=== PATIENT | male | born 1980 | race African-American/Black ===

== ENCOUNTER 2017-08-22 15:34 | Inpatient (IN) | payer MEDICARE, MEDICAID ==
[~2017-08-22] VITALS: Ht 171.4 cm; Wt 71.9 kg
[~2017-08-22 15:34] MED LIST: FOLI1 PO; LEVE500T53 PO; MULT-1203 PO; NALT50TA6 PO; PALI234D IM; PHENY100 PO; PRAZ1 PO; PREG50 PO; THIA100 PO
[2017-08-22] MEDS ORDERED: CARB200T6 PO (15:51)
[2017-08-22] MEDS ORDERED: CARI350 PO (15:51)
[2017-08-22] MEDS ORDERED: GABA-531 PO (15:51)
[2017-08-22] MEDS ORDERED: PROZ10 PO (15:51)
[2017-08-22 16:19] LABS: BASOPHILS % (AUTO) 0.8 % (0.0-2.0); HEMATOCRIT 49.3 % (41-53); HEMOGLOBIN 17.1 g/dL (13.5-17.5); LYMPHOCYTES # (AUTO) 1.9 K/uL (1.0-4.8); LYMPHOCYTES % (AUTO) 35.9 % (22.0-44.0); MEAN CORPUSCULAR HGB CONC 34.7 G/dL (31.0-37.0); MEAN CORPUSCULAR VOLUME 92 fL (80-100); MONOCYTES # (AUTO) 0.4 K/uL (0.1-1.0); MONOCYTES % (AUTO) 6.6 % (2.0-9.0); NEUTROPHILS # (AUTO) 2.6 K/uL (1.8-7.7); NEUTROPHILS % (AUTO) 49.7 % (40.0-70.0); PLATELET COUNT (AUTO) 219 K/uL (150-450); RED BLOOD CELL COUNT(AUTO) 5.35 MIL/uL (4.50-5.90); RED CELL DISTRIBUTION WIDTH 12.8 % (11.5-14.5); WHITE BLOOD COUNT (AUTO) 5.3 K/uL (4.5-11.0)
[2017-08-22 16:37] LABS: ANION GAP 6 mmol/L (8-16); CALCIUM, TOTAL 8.7 mg/dL (8.8-10.5); CARBON DIOXIDE 27 mmol/L (22-29); CHLORIDE 104 mmol/L (98-107); CREATININE 1.01 mg/dL (0.60-1.30); GLOMERULAR FILTR. RATE CALC > 60 mL/min (>60); POTASSIUM 4.2 mmol/L (3.5-5.1); SODIUM SERUM 137 mmol/L (136-145); UREA NITROGEN, BLOOD 16 mg/dL (7-18)
[2017-08-22 16:42] LABS: ALANINE AMINOTRANSFERASE 23 U/L (12-78); ASPARTATE AMINOTRANSFERASE 22 U/L (15-37); BILIRUBIN,TOTAL 0.2 mg/dL (0.1-1.0)
[2017-08-22] MEDS ORDERED: ZOLPIDEM TARTRATE 10 MG TABLET PO PRN (17:00)
[2017-08-22 19:19] VITALS: BP 113/68
[2017-08-23 07:06] VITALS: BP 115/76
[2017-08-23] MEDS: CarBAMazepine 100 MG CHEWABLE TABLET PO SCH (08:28)
[2017-08-23] MEDS: PHENYTOIN SODIUM 100 MG ER CAPSULE PO SCH ×2 (08:29→16:20)
[2017-08-23] MEDS: LORazepam 2 MG TABLET PO PRN ×2 (08:32→16:21)
[2017-08-23 09:18] LABS: CHOL/HDL RATIO 3.5 (4.2-7.3)
[2017-08-23 09:24] VITALS: BP 113/62
[2017-08-23] MEDS ORDERED: ONDANSETRON HCL 4 MG TABLET PO PRN (09:30)
[2017-08-23] MEDS ORDERED: ACETAMINOPHEN 325 MG TABLET PO PRN (09:30)
[2017-08-23] MEDS ORDERED: ALBUTEROL SULFATE HFA 90 MCG/PUFF 8 GM INHALER IH PRN (09:30)
[2017-08-23] MEDS ORDERED: MAGNESIUM HYDROXIDE SUSPENSION 30 ML UDCUP PO PRN (09:30)
[2017-08-23] MEDS ORDERED: MAG HYDROX/AL HYDROX/SIMETH ES 30 ML SUSPENSION UDCUP PO PRN (09:30)
[2017-08-23] MEDS ORDERED: CloNIDine HCL 0.1 MG TABLET PO PRN (09:30)
[2017-08-23] MEDS ORDERED: PETROLATUM,WHITE 71 GM JELLY TP PRN (09:30)
[2017-08-23] MEDS ORDERED: BACITRACIN 28.4 GM OINTMENT TP PRN (09:30)
[2017-08-23] MEDS ORDERED: BENZOCAINE/MENTHOL LOZENGE MM PRN (09:30)
[2017-08-23] MEDS ORDERED: LOPERAMIDE HCL 2 MG CAPSULE PO PRN (09:30)
[2017-08-23] MEDS ORDERED: IBUPROFEN 600 MG TABLET PO PRN (09:30)
[2017-08-23 16:00] VITALS: BP 115/69
[2017-08-23] MEDS: HALOPERIDOL 5 MG TABLET PO PRN (16:21)
[2017-08-23] MEDS: GABAPENTIN 300 MG CAPSULE PO SCH (16:21)
[2017-08-24 03:52] VITALS: BP 115/69
[2017-08-24] MEDS: FLUoxetine HCL 20 MG CAPSULE PO SCH (08:53)
[2017-08-24] MEDS: PHENYTOIN SODIUM 100 MG ER CAPSULE PO SCH ×2 (08:53→16:10)
[2017-08-24] MEDS: CarBAMazepine 100 MG CHEWABLE TABLET PO SCH (08:53)
[2017-08-24] MEDS: GABAPENTIN 300 MG CAPSULE PO SCH ×3 (08:53→16:10)
[2017-08-24] MEDS: LORazepam 2 MG TABLET PO PRN ×2 (08:53→16:31)
[2017-08-24 09:39] VITALS: BP 111/64
[2017-08-24] MEDS: HALOPERIDOL 5 MG TABLET PO PRN (16:31)
[2017-08-24 18:45] VITALS: BP 119/67
[2017-08-25] VITALS (7 sets, daily range): BP systolic 107–124; BP diastolic 50–78
[2017-08-25] MEDS: LORazepam 2 MG TABLET PO PRN (05:56)
[2017-08-25] MEDS: GABAPENTIN 300 MG CAPSULE PO SCH ×3 (09:49→16:05)
[2017-08-25] MEDS: CarBAMazepine 100 MG CHEWABLE TABLET PO SCH (09:49)
[2017-08-25] MEDS: FLUoxetine HCL 20 MG CAPSULE PO SCH (09:49)
[2017-08-25] MEDS: PHENYTOIN SODIUM 100 MG ER CAPSULE PO SCH ×2 (09:50→16:05)
[2017-08-25 15:13] LABS: GLUCOSE,POINT OF CARE 104 MG/DL (70-110)
[2017-08-26 07:50] VITALS: BP 122/78
[2017-08-26] MEDS: PHENYTOIN SODIUM 100 MG ER CAPSULE PO SCH ×2 (08:31→16:16)
[2017-08-26] MEDS: GABAPENTIN 300 MG CAPSULE PO SCH ×3 (08:31→16:16)
[2017-08-26] MEDS: CarBAMazepine 100 MG CHEWABLE TABLET PO SCH (08:31)
[2017-08-26] MEDS: FLUoxetine HCL 20 MG CAPSULE PO SCH (08:32)
[2017-08-26] MEDS: LORazepam 2 MG TABLET PO PRN ×2 (08:32→13:21)
[2017-08-26 08:35] VITALS: BP 111/68
[2017-08-26 16:00] VITALS: BP 112/65
[2017-08-27 05:04] VITALS: BP 109/76
[2017-08-27] MEDS: LORazepam 2 MG TABLET PO PRN (07:50)
[2017-08-27] MEDS: FLUoxetine HCL 20 MG CAPSULE PO SCH (08:44)
[2017-08-27] MEDS: GABAPENTIN 300 MG CAPSULE PO SCH (08:44)
[2017-08-27] MEDS: CarBAMazepine 100 MG CHEWABLE TABLET PO SCH (08:44)
[2017-08-27] MEDS: PHENYTOIN SODIUM 100 MG ER CAPSULE PO SCH (08:44)
[2017-08-27 08:53] LABS: ALANINE AMINOTRANSFERASE 35 U/L (12-78); ALBUMIN 3.8 g/dL (3.4-5.0); ANION GAP 6 mmol/L (8-16); ASPARTATE AMINOTRANSFERASE 24 U/L (15-37); BILIRUBIN,TOTAL 0.1 mg/dL (0.1-1.0); CALCIUM, TOTAL 8.6 mg/dL (8.8-10.5); CARBON DIOXIDE 31 mmol/L (22-29); CHLORIDE 104 mmol/L (98-107); GLOMERULAR FILTR. RATE CALC > 60 mL/min (>60); POTASSIUM 4.2 mmol/L (3.5-5.1); SODIUM SERUM 141 mmol/L (136-145); TOTAL PROTEIN, SERUM 6.4 g/dL (6.4-8.2); UREA NITROGEN, BLOOD 19 mg/dL (7-18)
[2017-08-27 08:56] VITALS: BP 105/67
[2017-08-27] MEDS ORDERED: FLUO40CA7 PO (10:43)
[2017-08-27] MEDS ORDERED: PHEN100C23 PO (10:44)
[2017-08-27] MEDS ORDERED: CARB100C4 PO (10:44)
== END 2017-08-27 12:03 | disposition home or self-care (01) | DRG 885 ==
LOC: EMS 15:37 → B3A 17:26
PROVIDERS: ADMIT Psychiatry & Neurology Psychiatry; ATTEND Psychiatry & Neurology Psychiatry
DX: F25.0 Schizoaffective disorder, bipolar type (principal); R45.851 Suicidal ideations; F15.20 Other stimulant dependence, uncomplicated; F19.20 Other psychoactive substance dependence, uncomplicated; G40.909 Epilepsy, unspecified, not intractable, without status epilepticus; I10 Essential (primary) hypertension; G47.00 Insomnia, unspecified; K59.00 Constipation, unspecified; G89.29 Other chronic pain; F17.210 Nicotine dependence, cigarettes, uncomplicated; M54.5 Low back pain; Z88.8 Allergy status to other drugs, medicaments and biological substances; Z79.899 Other long term (current) drug therapy; Z71.51 Drug abuse counseling and surveillance of drug abuser; Z71.6 Tobacco abuse counseling; Z59.0 Homelessness; Z86.73 Personal history of transient ischemic attack (TIA), and cerebral infarction without residual deficits
CPT/HCPCS: 82962; 99285; G0480

== ENCOUNTER 2017-11-10 15:37 | Inpatient (IN) | payer MEDICARE, MEDICAID ==
[~2017-11-10] VITALS: Ht 172.7 cm; Wt 73.0 kg
[~2017-11-10 15:37] MED LIST changes: +CARB100C4 PO; +FLUO40CA7 PO; -FOLI1 PO; +GABA-531 PO; -LEVE500T53 PO; -MULT-1203 PO; -NALT50TA6 PO; -PALI234D IM; +PHEN100C23 PO; -PHENY100 PO; -PRAZ1 PO; -PREG50 PO; -THIA100 PO
[2017-11-10 16:32] LABS: BASOPHILS # (AUTO) 0.03 K/uL (0.00-0.20); BASOPHILS % (AUTO) 0.4 % (0.0-2.0); EOSINOPHILS # (AUTO) 0.53 K/uL (0.00-0.70); EOSINOPHILS % (AUTO) 8.32 % (1.0-6.0); HEMATOCRIT 46.3 % (41-53); HEMOGLOBIN 15.6 g/dL (13.5-17.5); LYMPHOCYTES # (AUTO) 1.6 K/uL (1.0-4.8); LYMPHOCYTES % (AUTO) 24.7 % (22.0-44.0); MEAN CORPUSCULAR HEMOGLOBIN 31.9 pg (26.0-34.0); MEAN CORPUSCULAR HGB CONC 33.7 G/dL (31.0-37.0); MEAN CORPUSCULAR VOLUME 95 fL (80-100); MONOCYTES # (AUTO) 0.4 K/uL (0.1-1.0); NEUTROPHILS # (AUTO) 3.8 K/uL (1.8-7.7); NEUTROPHILS % (AUTO) 59.6 % (40.0-70.0); PLATELET COUNT (AUTO) 200 K/uL (150-450); RED BLOOD CELL COUNT(AUTO) 4.89 MIL/uL (4.50-5.90); RED CELL DISTRIBUTION WIDTH 13.3 % (11.5-14.5)
[2017-11-10] MEDS ORDERED: CARB100O PO (16:43)
[2017-11-10] MEDS ORDERED: QUET200T PO (16:44)
[2017-11-10 16:45] LABS: ANION GAP 9 mmol/L (8-16); CALCIUM, TOTAL 8.8 mg/dL (8.8-10.5); CARBON DIOXIDE 27 mmol/L (22-29); CHLORIDE 104 mmol/L (98-107); CREATININE 0.79 mg/dL (0.60-1.30); GLOMERULAR FILTR. RATE CALC > 60 mL/min (>60); GLUCOSE,RANDOM 137 mg/dL (70-110); POTASSIUM 3.8 mmol/L (3.5-5.1); SODIUM SERUM 140 mmol/L (136-145); UREA NITROGEN, BLOOD 16 mg/dL (7-18)
[2017-11-10 16:50] LABS: ALANINE AMINOTRANSFERASE 27 U/L (12-78); ALBUMIN 3.6 g/dL (3.4-5.0); ALKALINE PHOSPHATASE 72 U/L (46-116); ASPARTATE AMINOTRANSFERASE 24 U/L (15-37); BILIRUBIN,TOTAL 0.2 mg/dL (0.1-1.0)
[2017-11-10 18:48] LABS: AMPHET/METH SCREEN,URINE POSITIVE (NEGATIVE); BARBITURATE SCREEN, URINE NEGATIVE (NEGATIVE); BENZODIAZEPINES SCREEN,URINE NEGATIVE (NEGATIVE); CANNABINOID SCREEN,URINE NEGATIVE (NEGATIVE); COCAINE SCREEN,URINE NEGATIVE (NEGATIVE); METHADONE SCREEN, URINE NEGATIVE (NEGATIVE); OPIATE SCREEN,URINE NEGATIVE (NEGATIVE); PHENCYCLIDINE SCREEN,URINE NEGATIVE (NEGATIVE)
[2017-11-10] MEDS ORDERED: ZOLPIDEM TARTRATE 10 MG TABLET PO PRN (20:15)
[2017-11-10] MEDS ORDERED: LORazepam 2 MG TABLET PO ONE (20:30)
[2017-11-10] MEDS ORDERED: IBUPROFEN 600 MG TABLET PO PRN (21:15)
[2017-11-10] MEDS ORDERED: ACETAMINOPHEN 325 MG TABLET PO PRN (21:15)
[2017-11-10 21:23] VITALS: BP 114/71
[2017-11-10 23:17] LABS: APPEARANCE,URINE CLEAR (CLEAR); BILIRUBIN,URINE NEGATIVE (NEGATIVE); GLUCOSE, URINE (UA) NEGATIVE (NEGATIVE); KETONES,URINE NEGATIVE (NEGATIVE); LEUKOCYTE ESTERASE ,URINE NEGATIVE (NEGATIVE); NITRATE,URINE NEGATIVE (NEGATIVE); OCCULT BLOOD,URINE MODERATE (NEGATIVE); PROTEIN,URINE NEGATIVE (NEGATIVE); UROBILINOGEN,URINE 0.2 mg/dL (<=1.0)
[2017-11-10 23:38] LABS: BACTERIA,URINE Rare /HPF (None Seen); CALCIUM OXALATE CRYSTALS,UR Moderate /LPF (None Seen); SQUAMOUS EPITHELIAL CELL,UR Few /LPF (None Seen); WBC,URINE 0-2 /HPF (0-5)
[2017-11-11] MEDS: CarBAMazepine 200 MG TABLET PO SCH ×3 (08:01→17:00)
[2017-11-11] MEDS: GABAPENTIN 300 MG CAPSULE PO SCH ×3 (08:01→17:00)
[2017-11-11] MEDS: NICOTINE 21 MG/24 HOUR PATCH TD SCH (08:01)
[2017-11-11 08:47] VITALS: BP 112/76
[2017-11-11 11:42] LABS: CHOL/HDL RATIO 3.6 (4.2-7.3); CHOLESTEROL 172 mg/dL (131-200); HDL CHOLESTEROL 48 mg/dL (40-60); LDL CHOL (CALC.) 88 mg/dL (0-130); TRIGLYCERIDES 179 mg/dL (15-150)
[2017-11-11] MEDS: HALOPERIDOL 5 MG TABLET PO PRN (12:26)
[2017-11-11] MEDS: LORazepam 2 MG TABLET PO PRN (12:26)
[2017-11-11 16:00] VITALS: BP 122/70
[2017-11-11] MEDS ORDERED: QUEtiapine FUMARATE 200 MG TABLET PO SCH (21:00)
[2017-11-12 06:15] VITALS: BP 120/61
[2017-11-12] MEDS: FLUoxetine HCL 20 MG CAPSULE PO SCH (08:36)
[2017-11-12] MEDS: GABAPENTIN 300 MG CAPSULE PO SCH ×3 (08:36→16:15)
[2017-11-12] MEDS: CarBAMazepine 200 MG TABLET PO SCH ×3 (08:36→16:15)
[2017-11-12] MEDS: NICOTINE 21 MG/24 HOUR PATCH TD SCH (08:38)
[2017-11-12] MEDS: LORazepam 2 MG TABLET PO PRN (08:39)
[2017-11-12 08:52] VITALS: BP 119/74
[2017-11-12] MEDS: HALOPERIDOL 5 MG TABLET PO PRN (16:20)
[2017-11-12 17:00] VITALS: BP 106/70
[2017-11-13 05:24] VITALS: BP 126/70
[2017-11-13] MEDS: FLUoxetine HCL 20 MG CAPSULE PO SCH (08:57)
[2017-11-13] MEDS: GABAPENTIN 300 MG CAPSULE PO SCH ×3 (08:57→16:27)
[2017-11-13] MEDS: CarBAMazepine 200 MG TABLET PO SCH ×3 (08:57→16:27)
[2017-11-13] MEDS: NICOTINE 21 MG/24 HOUR PATCH TD SCH (09:01)
[2017-11-13 10:24] VITALS: BP 121/79
[2017-11-13 17:34] VITALS: BP 109/63
[2017-11-14] MEDS: CarBAMazepine 200 MG TABLET PO SCH ×3 (08:29→16:03)
[2017-11-14] MEDS: GABAPENTIN 300 MG CAPSULE PO SCH ×3 (08:29→16:03)
[2017-11-14] MEDS: FLUoxetine HCL 20 MG CAPSULE PO SCH (08:29)
[2017-11-14] MEDS: NICOTINE 21 MG/24 HOUR PATCH TD SCH (08:33)
[2017-11-14 09:24] VITALS: BP 140/86
[2017-11-14 18:50] VITALS: BP 132/79
[2017-11-15] MEDS: GABAPENTIN 300 MG CAPSULE PO SCH ×2 (08:23→12:56)
[2017-11-15] MEDS: CarBAMazepine 200 MG TABLET PO SCH ×2 (08:24→12:56)
[2017-11-15] MEDS: FLUoxetine HCL 20 MG CAPSULE PO SCH (08:24)
[2017-11-15] MEDS: NICOTINE 21 MG/24 HOUR PATCH TD SCH (09:00)
[2017-11-15 09:09] VITALS: BP 106/71
== END 2017-11-15 14:45 | disposition home or self-care (01) | DRG 885 ==
LOC: EMS 15:38 → 3EX 20:30
PROVIDERS: ADMIT Psychiatry & Neurology Psychiatry; ATTEND Psychiatry & Neurology Psychiatry
DX: F25.1 Schizoaffective disorder, depressive type (principal); R45.851 Suicidal ideations; G40.909 Epilepsy, unspecified, not intractable, without status epilepticus; F32.9 Major depressive disorder, single episode, unspecified; G89.29 Other chronic pain; M54.9 Dorsalgia, unspecified; F15.90 Other stimulant use, unspecified, uncomplicated; F41.9 Anxiety disorder, unspecified; N20.0 Calculus of kidney; Z88.8 Allergy status to other drugs, medicaments and biological substances; Z95.0 Presence of cardiac pacemaker; Z59.0 Homelessness; Z82.49 Family history of ischemic heart disease and other diseases of the circulatory system; Z82.5 Family history of asthma and other chronic lower respiratory diseases; Z86.73 Personal history of transient ischemic attack (TIA), and cerebral infarction without residual deficits; Z87.442 Personal history of urinary calculi; F10.21 Alcohol dependence, in remission; Z87.891 Personal history of nicotine dependence; F19.10 Other psychoactive substance abuse, uncomplicated
CPT/HCPCS: 99285; G0480

== ENCOUNTER 2018-05-03 08:16 | Inpatient (IN) | payer MEDICARE, MEDICAID ==
[~2018-05-03] VITALS: Ht 172.7 cm; Wt 69.1 kg
[~2018-05-03 08:16] MED LIST changes: -PHEN100C23 PO
[2018-05-03] MEDS ORDERED: QUET100T PO (09:31)
[2018-05-03] MEDS ORDERED: CARI350 PO (09:31)
[2018-05-03 09:54] LABS: BASOPHILS % (AUTO) 0.7 % (0.0-2.0); EOSINOPHILS % (AUTO) 4.7 % (1.0-6.0); HEMATOCRIT 49.1 % (41-53); HEMOGLOBIN 17.3 g/dL (13.5-17.5); LYMPHOCYTES # (AUTO) 2.2 K/uL (1.0-4.8); LYMPHOCYTES % (AUTO) 38.7 % (22.0-44.0); MEAN CORPUSCULAR HEMOGLOBIN 31.8 pg (26.0-34.0); MEAN CORPUSCULAR HGB CONC 35.3 G/dL (31.0-37.0); MEAN CORPUSCULAR VOLUME 90 fL (80-100); MONOCYTES # (AUTO) 0.3 K/uL (0.1-1.0); MONOCYTES % (AUTO) 6.2 % (2.0-9.0); NEUTROPHILS # (AUTO) 2.8 K/uL (1.8-7.7); NEUTROPHILS % (AUTO) 49.7 % (40.0-70.0); PLATELET COUNT (AUTO) 227 K/uL (150-450); RED BLOOD CELL COUNT(AUTO) 5.44 MIL/uL (4.50-5.90); RED CELL DISTRIBUTION WIDTH 13.6 % (11.5-14.5)
[2018-05-03 09:59] LABS: ANION GAP 6 mmol/L (8-16); CALCIUM, TOTAL 8.5 mg/dL (8.8-10.5); CARBON DIOXIDE 28 mmol/L (22-29); CHLORIDE 105 mmol/L (98-107); CREATININE 1.01 mg/dL (0.60-1.30); GLOMERULAR FILTR. RATE CALC > 60 mL/min (>60); GLUCOSE,RANDOM 93 mg/dL (70-110); POTASSIUM 3.9 mmol/L (3.5-5.1); SODIUM SERUM 139 mmol/L (136-145); UREA NITROGEN, BLOOD 8 mg/dL (7-18)
[2018-05-03 10:04] LABS: ALANINE AMINOTRANSFERASE 29 U/L (12-78); ALBUMIN 4.1 g/dL (3.4-5.0); ALKALINE PHOSPHATASE 61 U/L (46-116); ASPARTATE AMINOTRANSFERASE 23 U/L (15-37); BILIRUBIN,TOTAL 0.5 mg/dL (0.1-1.0); TOTAL PROTEIN, SERUM 7.4 g/dL (6.4-8.2)
[2018-05-03 10:24] LABS: AMPHET/METH SCREEN,URINE POSITIVE (NEGATIVE); BARBITURATE SCREEN, URINE NEGATIVE (NEGATIVE); BENZODIAZEPINES SCREEN,URINE NEGATIVE (NEGATIVE); CANNABINOID SCREEN,URINE NEGATIVE (NEGATIVE); COCAINE SCREEN,URINE NEGATIVE (NEGATIVE); METHADONE SCREEN, URINE NEGATIVE (NEGATIVE); OPIATE SCREEN,URINE NEGATIVE (NEGATIVE); PHENCYCLIDINE SCREEN,URINE NEGATIVE (NEGATIVE)
[2018-05-03] MEDS ORDERED: ACETAMINOPHEN 325 MG TABLET PO PRN (13:45)
[2018-05-03] MEDS ORDERED: QUEtiapine FUMARATE 100 MG TABLET PO PRN (13:45)
[2018-05-03] MEDS ORDERED: LORazepam 2 MG TABLET PO PRN (13:45)
[2018-05-03] MEDS ORDERED: ZOLPIDEM TARTRATE 10 MG TABLET PO PRN (13:45)
[2018-05-03 16:15] VITALS: BP 104/71
[2018-05-03] MEDS ORDERED: CARB200T6 PO (17:08)
[2018-05-03 17:30] VITALS: BP 122/66
[2018-05-03] MEDS ORDERED: ALBUTEROL SULFATE HFA 90 MCG/PUFF 8 GM INHALER IH PRN (18:30)
[2018-05-03] MEDS ORDERED: CloNIDine HCL 0.1 MG TABLET PO PRN (18:30)
[2018-05-03] MEDS ORDERED: LOPERAMIDE HCL 2 MG CAPSULE PO PRN (18:30)
[2018-05-03] MEDS ORDERED: MAGNESIUM HYDROXIDE SUSPENSION 30 ML UDCUP PO PRN (18:30)
[2018-05-03] MEDS ORDERED: PETROLATUM,WHITE 71 GM JELLY TP PRN (18:30)
[2018-05-03] MEDS ORDERED: ONDANSETRON HCL 4 MG TABLET PO PRN (18:30)
[2018-05-03] MEDS ORDERED: MAG HYDROX/AL HYDROX/SIMETH ES 30 ML SUSPENSION UDCUP PO PRN (18:30)
[2018-05-03] MEDS ORDERED: DOCUSATE SODIUM 100 MG CAPSULE PO PRN (18:30)
[2018-05-03] MEDS: CARISOPRODOL 350 MG TABLET PO SCH (20:26)
[2018-05-04 08:00] VITALS: BP 105/65
[2018-05-04 08:32] LABS: BASOPHILS % (AUTO) 0.4 % (0.0-2.0); EOSINOPHILS % (AUTO) 5.5 % (1.0-6.0); HEMATOCRIT 50.2 % (41-53); HEMOGLOBIN 17.4 g/dL (13.5-17.5); LYMPHOCYTES # (AUTO) 1.8 K/uL (1.0-4.8); LYMPHOCYTES % (AUTO) 27.6 % (22.0-44.0); MEAN CORPUSCULAR HEMOGLOBIN 31.9 pg (26.0-34.0); MEAN CORPUSCULAR HGB CONC 34.7 G/dL (31.0-37.0); MEAN CORPUSCULAR VOLUME 92 fL (80-100); MONOCYTES # (AUTO) 0.4 K/uL (0.1-1.0); MONOCYTES % (AUTO) 6.4 % (2.0-9.0); NEUTROPHILS # (AUTO) 3.9 K/uL (1.8-7.7); NEUTROPHILS % (AUTO) 60.1 % (40.0-70.0); PLATELET COUNT (AUTO) 201 K/uL (150-450); RED BLOOD CELL COUNT(AUTO) 5.46 MIL/uL (4.50-5.90); RED CELL DISTRIBUTION WIDTH 13.8 % (11.5-14.5)
[2018-05-04 08:55] LABS: HEMOGLOBIN A1C 5.3 % (4.5-6.2)
[2018-05-04] MEDS: CARISOPRODOL 350 MG TABLET PO SCH ×3 (09:22→17:32)
[2018-05-04] MEDS: GABAPENTIN 300 MG CAPSULE PO SCH ×3 (09:22→17:32)
[2018-05-04] MEDS: CarBAMazepine 200 MG TABLET PO SCH ×3 (09:22→17:30)
[2018-05-04] MEDS: ACYCLOVIR 5% 5 GM OINTMENT TP SCH ×2 (09:23→17:30)
[2018-05-04 09:58] LABS: ALANINE AMINOTRANSFERASE 24 U/L (12-78); ALBUMIN 3.6 g/dL (3.4-5.0); ALKALINE PHOSPHATASE 58 U/L (46-116); ANION GAP 3 mmol/L (8-16); ASPARTATE AMINOTRANSFERASE 18 U/L (15-37); BILIRUBIN,TOTAL 0.4 mg/dL (0.1-1.0); CALCIUM, TOTAL 8.8 mg/dL (8.8-10.5); CARBON DIOXIDE 30 mmol/L (22-29); CHLORIDE 105 mmol/L (98-107); CHOL/HDL RATIO 5.5 (4.2-7.3); CHOLESTEROL 252 mg/dL (131-200); CREATININE 0.91 mg/dL (0.60-1.30); GLOMERULAR FILTR. RATE CALC > 60 mL/min (>60); GLUCOSE,RANDOM 71 mg/dL (70-110); HDL CHOLESTEROL 46 mg/dL (40-60); LDL CHOL (CALC.) 172 mg/dL (0-130); SODIUM SERUM 138 mmol/L (136-145); THYROID STIMULATING HORMONE 0.41 uIU/mL (0.36-3.74); TOTAL PROTEIN, SERUM 6.6 g/dL (6.4-8.2); TRIGLYCERIDES 172 mg/dL (15-150); UREA NITROGEN, BLOOD 16 mg/dL (7-18)
[2018-05-04 16:24] VITALS: BP 110/65
[2018-05-04] MEDS: QUEtiapine FUMARATE 100 MG TABLET PO SCH (17:31)
[2018-05-04 19:30] VITALS: BP 128/72
[2018-05-05 00:01] VITALS: BP 110/69
[2018-05-05] MEDS: CARISOPRODOL 350 MG TABLET PO SCH ×3 (00:13→16:51)
[2018-05-05 04:00] VITALS: BP 101/63
[2018-05-05 08:07] VITALS: BP 106/70
[2018-05-05] MEDS: CarBAMazepine 200 MG TABLET PO SCH ×3 (08:47→16:51)
[2018-05-05] MEDS: QUEtiapine FUMARATE 100 MG TABLET PO SCH ×2 (08:47→16:51)
[2018-05-05] MEDS: FLUoxetine HCL 20 MG CAPSULE PO SCH (08:47)
[2018-05-05] MEDS: ACYCLOVIR 5% 5 GM OINTMENT TP SCH ×2 (08:48→16:52)
[2018-05-05 12:00] VITALS: BP 113/76
[2018-05-05] MEDS: GABAPENTIN 300 MG CAPSULE PO SCH ×2 (12:48→16:51)
[2018-05-05 16:05] VITALS: BP 109/65
[2018-05-06] MEDS: CarBAMazepine 200 MG TABLET PO SCH ×4 (00:16→16:09)
[2018-05-06 00:30] VITALS: BP 97/60
[2018-05-06] MEDS: CARISOPRODOL 350 MG TABLET PO SCH ×3 (00:37→16:09)
[2018-05-06] MEDS: FLUoxetine HCL 20 MG CAPSULE PO SCH (08:12)
[2018-05-06] MEDS: QUEtiapine FUMARATE 100 MG TABLET PO SCH ×2 (08:13→16:09)
[2018-05-06] MEDS: GABAPENTIN 300 MG CAPSULE PO SCH ×3 (08:13→16:09)
[2018-05-06] MEDS: ACYCLOVIR 5% 5 GM OINTMENT TP SCH ×2 (08:13→16:10)
[2018-05-06 08:20] VITALS: BP 115/72
[2018-05-06] MEDS ORDERED: GABAPENTIN 300 MG CAPSULE PO SCH (09:00)
[2018-05-06 16:09] VITALS: BP 116/78
[2018-05-07] MEDS: CARISOPRODOL 350 MG TABLET PO SCH ×2 (00:13→08:27)
[2018-05-07 01:12] VITALS: BP 110/75
[2018-05-07 08:12] VITALS: BP 113/65
[2018-05-07] MEDS: GABAPENTIN 300 MG CAPSULE PO SCH (08:26)
[2018-05-07] MEDS: CarBAMazepine 200 MG TABLET PO SCH (08:26)
[2018-05-07] MEDS: FLUoxetine HCL 20 MG CAPSULE PO SCH (08:26)
[2018-05-07] MEDS: QUEtiapine FUMARATE 100 MG TABLET PO SCH (08:27)
[2018-05-07] MEDS: ACYCLOVIR 5% 5 GM OINTMENT TP SCH (08:28)
[2018-05-07] MEDS ORDERED: QUET100T33 PO (10:39)
[2018-05-07] MEDS ORDERED: FLUO-191 PO (10:39)
[2018-05-07] MEDS ORDERED: GABA-531 PO (11:41)
[2018-05-07] MEDS ORDERED: CARB200T6 PO (11:44)
[2018-05-07] MEDS ORDERED: CARI350 PO (11:44)
== END 2018-05-07 12:10 | disposition home or self-care (01) | DRG 885 ==
LOC: EMS 08:18 → B2X 14:10
DX: F25.1 Schizoaffective disorder, depressive type (principal); R45.851 Suicidal ideations; F19.20 Other psychoactive substance dependence, uncomplicated; G40.909 Epilepsy, unspecified, not intractable, without status epilepticus; E78.5 Hyperlipidemia, unspecified; F17.200 Nicotine dependence, unspecified, uncomplicated; M54.9 Dorsalgia, unspecified; F41.9 Anxiety disorder, unspecified; G47.00 Insomnia, unspecified; G89.29 Other chronic pain; K59.00 Constipation, unspecified; Z79.899 Other long term (current) drug therapy; Z91.5 Personal history of self-harm; Z88.6 Allergy status to analgesic agent; Z88.8 Allergy status to other drugs, medicaments and biological substances; Z71.6 Tobacco abuse counseling; Z71.51 Drug abuse counseling and surveillance of drug abuser; Z81.8 Family history of other mental and behavioral disorders
CPT/HCPCS: 83036; 84443; 99285; G0480

== ENCOUNTER 2018-05-08 12:30 | Inpatient (IN) | payer MEDICARE, MEDICAID ==
[~2018-05-08] VITALS: Ht 172.7 cm; Wt 73.0 kg
[~2018-05-08 12:30] MED LIST changes: -CARB100C4 PO; +CARB200T6 PO; +FLUO-191 PO; -FLUO40CA7 PO; +QUET100T33 PO
[2018-05-08] MEDS ORDERED: GABAPENTIN 300 MG CAPSULE PO ONE (14:00)
[2018-05-08] MEDS ORDERED: CarBAMazepine 200 MG TABLET PO ONE (14:00)
[2018-05-08 14:27] LABS: AMPHET/METH SCREEN,URINE POSITIVE (NEGATIVE); BARBITURATE SCREEN, URINE NEGATIVE (NEGATIVE); BENZODIAZEPINES SCREEN,URINE NEGATIVE (NEGATIVE); CANNABINOID SCREEN,URINE NEGATIVE (NEGATIVE); COCAINE SCREEN,URINE NEGATIVE (NEGATIVE); METHADONE SCREEN, URINE NEGATIVE (NEGATIVE); OPIATE SCREEN,URINE NEGATIVE (NEGATIVE)
[2018-05-08 14:27] LABS: BASOPHILS % (AUTO) 0.7 % (0.0-2.0); EOSINOPHILS % (AUTO) 2.7 % (1.0-6.0); HEMATOCRIT 48.1 % (41-53); HEMOGLOBIN 16.8 g/dL (13.5-17.5); LYMPHOCYTES # (AUTO) 1.9 K/uL (1.0-4.8); LYMPHOCYTES % (AUTO) 35.9 % (22.0-44.0); MEAN CORPUSCULAR HEMOGLOBIN 31.4 pg (26.0-34.0); MEAN CORPUSCULAR HGB CONC 34.9 G/dL (31.0-37.0); MEAN CORPUSCULAR VOLUME 90 fL (80-100); MONOCYTES # (AUTO) 0.6 K/uL (0.1-1.0); MONOCYTES % (AUTO) 11.8 % (2.0-9.0); NEUTROPHILS # (AUTO) 2.6 K/uL (1.8-7.7); NEUTROPHILS % (AUTO) 48.9 % (40.0-70.0); PLATELET COUNT (AUTO) 204 K/uL (150-450); RED BLOOD CELL COUNT(AUTO) 5.34 MIL/uL (4.50-5.90); RED CELL DISTRIBUTION WIDTH 13.6 % (11.5-14.5)
[2018-05-08 14:29] LABS: PHENCYCLIDINE SCREEN,URINE NEGATIVE (NEGATIVE)
[2018-05-08 14:35] LABS: ANION GAP 7 mmol/L (8-16); CALCIUM, TOTAL 9.3 mg/dL (8.8-10.5); CARBON DIOXIDE 31 mmol/L (22-29); CHLORIDE 101 mmol/L (98-107); GLOMERULAR FILTR. RATE CALC > 60 mL/min (>60); GLUCOSE,RANDOM 91 mg/dL (70-110); POTASSIUM 3.4 mmol/L (3.5-5.1); SODIUM SERUM 139 mmol/L (136-145); UREA NITROGEN, BLOOD 14 mg/dL (7-18)
[2018-05-08 14:43] LABS: ALANINE AMINOTRANSFERASE 31 U/L (12-78); ALBUMIN 4.2 g/dL (3.4-5.0); ALKALINE PHOSPHATASE 67 U/L (46-116); ASPARTATE AMINOTRANSFERASE 33 U/L (15-37); BILIRUBIN,TOTAL 0.5 mg/dL (0.1-1.0); TOTAL PROTEIN, SERUM 7.7 g/dL (6.4-8.2)
[2018-05-08 19:52] VITALS: BP 127/91
[2018-05-08] MEDS: GABAPENTIN 300 MG CAPSULE PO SCH (21:02)
[2018-05-08] MEDS: QUEtiapine FUMARATE 100 MG TABLET PO SCH (21:03)
[2018-05-08] MEDS ORDERED: HALOPERIDOL 5 MG TABLET PO PRN (21:15)
[2018-05-08] MEDS ORDERED: ZOLPIDEM TARTRATE 10 MG TABLET PO PRN (21:15)
[2018-05-08] MEDS ORDERED: LORazepam 2 MG TABLET PO PRN (21:15)
[2018-05-08 22:30] VITALS: BP 114/76
[2018-05-09] VITALS: BP 101/62
[2018-05-09] MEDS: CARISOPRODOL 350 MG TABLET PO SCH ×3 (00:06→16:41)
[2018-05-09 06:59] LABS: HEMOGLOBIN A1C 5.3 % (4.5-6.2)
[2018-05-09 07:17] LABS: ALANINE AMINOTRANSFERASE 29 U/L (12-78); ALKALINE PHOSPHATASE 64 U/L (46-116); ANION GAP 5 mmol/L (8-16); ASPARTATE AMINOTRANSFERASE 32 U/L (15-37); BILIRUBIN,TOTAL 0.5 mg/dL (0.1-1.0); CALCIUM, TOTAL 9.1 mg/dL (8.8-10.5); CARBON DIOXIDE 31 mmol/L (22-29); CHLORIDE 101 mmol/L (98-107); CREATININE 0.92 mg/dL (0.60-1.30); GLOMERULAR FILTR. RATE CALC > 60 mL/min (>60); GLUCOSE,RANDOM 81 mg/dL (70-110); POTASSIUM 4.1 mmol/L (3.5-5.1); SODIUM SERUM 137 mmol/L (136-145); THYROID STIMULATING HORMONE 0.49 uIU/mL (0.36-3.74); TOTAL PROTEIN, SERUM 7.4 g/dL (6.4-8.2); UREA NITROGEN, BLOOD 16 mg/dL (7-18)
[2018-05-09 07:40] LABS: CHOL/HDL RATIO 4.9 (4.2-7.3); CHOLESTEROL 245 mg/dL (131-200); HDL CHOLESTEROL 50 mg/dL (40-60); LDL CHOL (CALC.) 167 mg/dL (0-130); TRIGLYCERIDES 142 mg/dL (15-150)
[2018-05-09 07:45] VITALS: BP 113/70
[2018-05-09] MEDS: QUEtiapine FUMARATE 100 MG TABLET PO SCH ×2 (07:55→16:42)
[2018-05-09] MEDS: FLUoxetine HCL 20 MG CAPSULE PO SCH (07:55)
[2018-05-09] MEDS: GABAPENTIN 300 MG CAPSULE PO SCH ×3 (07:55→16:41)
[2018-05-09] MEDS: CarBAMazepine 200 MG TABLET PO SCH ×3 (07:55→16:42)
[2018-05-09 09:00] VITALS: BP 118/71
[2018-05-09] MEDS ORDERED: GABAPENTIN 300 MG CAPSULE PO SCH (09:00)
[2018-05-09] MEDS ORDERED: QUEtiapine FUMARATE 100 MG TABLET PO SCH (09:00)
[2018-05-09] MEDS ORDERED: FLUoxetine HCL 20 MG CAPSULE PO SCH (09:00)
[2018-05-09 17:00] VITALS: BP 98/45
[2018-05-10 01:30] VITALS: BP 106/68
[2018-05-10] MEDS: CARISOPRODOL 350 MG TABLET PO SCH ×3 (01:34→16:44)
[2018-05-10] MEDS: GABAPENTIN 300 MG CAPSULE PO SCH ×3 (08:57→16:32)
[2018-05-10] MEDS: QUEtiapine FUMARATE 100 MG TABLET PO SCH ×2 (08:58→16:32)
[2018-05-10] MEDS: FLUoxetine HCL 20 MG CAPSULE PO SCH (08:58)
[2018-05-10] MEDS: CarBAMazepine 200 MG TABLET PO SCH ×3 (08:58→16:32)
[2018-05-10 09:51] VITALS: BP 133/66
[2018-05-10 19:17] VITALS: BP 115/64
[2018-05-11 00:19] VITALS: BP 120/73
[2018-05-11] MEDS: CARISOPRODOL 350 MG TABLET PO SCH ×3 (00:19→16:12)
[2018-05-11] MEDS: QUEtiapine FUMARATE 100 MG TABLET PO SCH ×2 (08:25→16:45)
[2018-05-11] MEDS: GABAPENTIN 300 MG CAPSULE PO SCH ×3 (08:25→16:45)
[2018-05-11] MEDS: FLUoxetine HCL 20 MG CAPSULE PO SCH (08:25)
[2018-05-11] MEDS: CarBAMazepine 200 MG TABLET PO SCH ×3 (08:25→16:45)
[2018-05-11 08:44] VITALS: BP 132/102
[2018-05-11 18:04] VITALS: BP 116/92
[2018-05-12] VITALS: BP 108/64
[2018-05-12] MEDS: CARISOPRODOL 350 MG TABLET PO SCH ×3 (00:02→16:03)
[2018-05-12 08:05] VITALS: BP 120/77
[2018-05-12] MEDS: FLUoxetine HCL 20 MG CAPSULE PO SCH (08:24)
[2018-05-12] MEDS: QUEtiapine FUMARATE 100 MG TABLET PO SCH ×2 (08:24→16:02)
[2018-05-12] MEDS: GABAPENTIN 300 MG CAPSULE PO SCH ×3 (08:24→16:02)
[2018-05-12] MEDS: CarBAMazepine 200 MG TABLET PO SCH ×3 (08:25→16:02)
[2018-05-12 17:16] VITALS: BP 121/81
[2018-05-13 00:13] VITALS: BP 113/73
[2018-05-13] MEDS: CARISOPRODOL 350 MG TABLET PO SCH ×2 (00:14→08:22)
[2018-05-13] MEDS: QUEtiapine FUMARATE 100 MG TABLET PO SCH (08:23)
[2018-05-13] MEDS: FLUoxetine HCL 20 MG CAPSULE PO SCH (08:23)
[2018-05-13] MEDS: GABAPENTIN 300 MG CAPSULE PO SCH (08:23)
[2018-05-13] MEDS: CarBAMazepine 200 MG TABLET PO SCH (08:23)
[2018-05-13] MEDS ORDERED: CARI350 PO (09:45)
[2018-05-17] MEDS ORDERED: FLUO-191 PO (12:09)
[2018-05-17] MEDS ORDERED: QUET200T PO (12:09)
[2018-05-17] MEDS ORDERED: PRAZ1 PO (12:09)
== END 2018-05-13 11:00 | disposition home or self-care (01) | DRG 885 ==
LOC: EMS 12:31 → 3EX 21:21
PROVIDERS: ADMIT Psychiatry & Neurology Psychiatry
DX: F25.1 Schizoaffective disorder, depressive type (principal); F15.20 Other stimulant dependence, uncomplicated; E78.5 Hyperlipidemia, unspecified; F41.9 Anxiety disorder, unspecified; G40.909 Epilepsy, unspecified, not intractable, without status epilepticus; G89.29 Other chronic pain; K59.09 Other constipation; M54.9 Dorsalgia, unspecified; F19.10 Other psychoactive substance abuse, uncomplicated; Z59.0 Homelessness; Z79.899 Other long term (current) drug therapy; Z86.73 Personal history of transient ischemic attack (TIA), and cerebral infarction without residual deficits; Z91.5 Personal history of self-harm; Z87.891 Personal history of nicotine dependence; Z88.5 Allergy status to narcotic agent; Z88.8 Allergy status to other drugs, medicaments and biological substances; Z71.51 Drug abuse counseling and surveillance of drug abuser
CPT/HCPCS: 83036; 84443; 87081; 99285; G0480

== ENCOUNTER → 2018-06-08 | Outpatient (CLI) | payer MEDICARE, MEDICAID ==
[~2018-06-08] MED LIST changes: +CARI350 PO; +PRAZ1 PO; -QUET100T33 PO; +QUET200T PO
== END | disposition home or self-care (01) ==
LOC: LABMN 12:00
PROVIDERS: ATTEND Internal Medicine
DX: F25.9 Schizoaffective disorder, unspecified (principal); Z79.899 Other long term (current) drug therapy
CPT/HCPCS: 80074; 86708

== ENCOUNTER 2018-08-11 12:03 | Inpatient (IN) | payer MEDICARE, MEDICAID ==
[~2018-08-11] VITALS: Ht 170.2 cm; Wt 79.6 kg
[2018-08-11 13:27] LABS: BASOPHILS % (AUTO) 0.6 % (0.0-2.0); EOSINOPHILS % (AUTO) 4.6 % (1.0-6.0); HEMATOCRIT 47.6 % (41-53); HEMOGLOBIN 16.3 g/dL (13.5-17.5); LYMPHOCYTES # (AUTO) 1.5 K/uL (1.0-4.8); LYMPHOCYTES % (AUTO) 18.3 % (22.0-44.0); MEAN CORPUSCULAR HEMOGLOBIN 31.9 pg (26.0-34.0); MEAN CORPUSCULAR HGB CONC 34.3 G/dL (31.0-37.0); MEAN CORPUSCULAR VOLUME 93 fL (80-100); MONOCYTES # (AUTO) 0.6 K/uL (0.1-1.0); MONOCYTES % (AUTO) 7.5 % (2.0-9.0); NEUTROPHILS # (AUTO) 5.7 K/uL (1.8-7.7); PLATELET COUNT (AUTO) 228 K/uL (150-450); RED BLOOD CELL COUNT(AUTO) 5.12 MIL/uL (4.50-5.90); RED CELL DISTRIBUTION WIDTH 12.8 % (11.5-14.5)
[2018-08-11 13:29] LABS: AMPHET/METH SCREEN,URINE POSITIVE (NEGATIVE); BARBITURATE SCREEN, URINE NEGATIVE (NEGATIVE); BENZODIAZEPINES SCREEN,URINE NEGATIVE (NEGATIVE); CANNABINOID SCREEN,URINE NEGATIVE (NEGATIVE); COCAINE SCREEN,URINE NEGATIVE (NEGATIVE); METHADONE SCREEN, URINE NEGATIVE (NEGATIVE); OPIATE SCREEN,URINE NEGATIVE (NEGATIVE)
[2018-08-11 13:30] LABS: PHENCYCLIDINE SCREEN,URINE NEGATIVE (NEGATIVE)
[2018-08-11] MEDS ORDERED: LORazepam 1 MG TABLET PO ONE (13:45)
[2018-08-11 13:50] LABS: ANION GAP 11 mmol/L (8-16); CALCIUM, TOTAL 8.7 mg/dL (8.8-10.5); CARBON DIOXIDE 23 mmol/L (22-29); CHLORIDE 110 mmol/L (98-107); CREATININE 0.96 mg/dL (0.60-1.30); GLOMERULAR FILTR. RATE CALC > 60 mL/min (>60); GLUCOSE,RANDOM 143 mg/dL (70-110); POTASSIUM 3.6 mmol/L (3.5-5.1); SODIUM SERUM 144 mmol/L (136-145); UREA NITROGEN, BLOOD 21 mg/dL (7-18)
[2018-08-11 13:56] LABS: ALANINE AMINOTRANSFERASE 41 U/L (12-78); ALBUMIN 3.9 g/dL (3.4-5.0); ALKALINE PHOSPHATASE 63 U/L (46-116); ASPARTATE AMINOTRANSFERASE 38 U/L (15-37); BILIRUBIN,TOTAL 0.3 mg/dL (0.1-1.0); TOTAL PROTEIN, SERUM 7.3 g/dL (6.4-8.2)
[2018-08-11] MEDS ORDERED: LOPERAMIDE HCL 2 MG CAPSULE PO PRN (14:15)
[2018-08-11] MEDS ORDERED: QUEtiapine FUMARATE 100 MG TABLET PO PRN (14:15)
[2018-08-11] MEDS ORDERED: LORazepam 2 MG TABLET PO PRN (14:15)
[2018-08-11] MEDS ORDERED: ACETAMINOPHEN 325 MG TABLET PO PRN (14:15)
[2018-08-11] MEDS ORDERED: HydrOXYzine PAMOATE 50 MG CAPSULE PO PRN (14:15)
[2018-08-11] MEDS ORDERED: ZOLPIDEM TARTRATE 10 MG TABLET PO PRN (14:15)
[2018-08-11] MEDS ORDERED: PROMETHAZINE HCL 25 MG TABLET PO PRN (14:15)
[2018-08-11] MEDS ORDERED: TUBERCULIN, PURIFIED PROTEIN DERIVATIVE 5 TU/0.1 ML SYG ID ONE (14:15)
[2018-08-11] MEDS ORDERED: GuaiFENesin/D-METHORPHAN [SUGAR-FREE] 200-20MG/10 ML SYRUP UDCUP PO PRN (14:15)
[2018-08-11] MEDS ORDERED: MAG HYDROX/AL HYDROX/SIMETH ES 30 ML SUSPENSION UDCUP PO PRN (14:15)
[2018-08-11] MEDS ORDERED: MAGNESIUM HYDROXIDE SUSPENSION 30 ML UDCUP PO PRN (14:15)
[2018-08-11] MEDS ORDERED: GABAPENTIN 300 MG CAPSULE PO SCH (16:00)
[2018-08-11] MEDS ORDERED: CarBAMazepine 200 MG TABLET PO SCH (16:00)
[2018-08-11 18:21] VITALS: BP 122/74
[2018-08-11] MEDS: THIAMINE HCL 100 MG TABLET PO SCH (18:21)
[2018-08-11 20:52] VITALS: BP 115/68
[2018-08-11] MEDS: PRAZOSIN HCL 1 MG CAPSULE PO SCH (20:55)
[2018-08-11] MEDS: GABAPENTIN 100 MG CAPSULE PO SCH (20:55)
[2018-08-11] MEDS ORDERED: QUEtiapine FUMARATE 200 MG TABLET PO SCH (21:00)
[2018-08-12 05:39] VITALS: BP 111/72
[2018-08-12 07:57] LABS: BASOPHILS % (AUTO) 0.7 % (0.0-2.0); EOSINOPHILS % (AUTO) 10.1 % (1.0-6.0); HEMATOCRIT 45.5 % (41-53); HEMOGLOBIN 15.8 g/dL (13.5-17.5); LYMPHOCYTES # (AUTO) 1.5 K/uL (1.0-4.8); LYMPHOCYTES % (AUTO) 40.8 % (22.0-44.0); MEAN CORPUSCULAR HEMOGLOBIN 32.1 pg (26.0-34.0); MEAN CORPUSCULAR HGB CONC 34.7 G/dL (31.0-37.0); MEAN CORPUSCULAR VOLUME 93 fL (80-100); MONOCYTES # (AUTO) 0.3 K/uL (0.1-1.0); NEUTROPHILS # (AUTO) 1.4 K/uL (1.8-7.7); NEUTROPHILS % (AUTO) 39.4 % (40.0-70.0); PLATELET COUNT (AUTO) 196 K/uL (150-450); RED BLOOD CELL COUNT(AUTO) 4.92 MIL/uL (4.50-5.90)
[2018-08-12 08:43] VITALS: BP 129/65
[2018-08-12 08:45] LABS: ALANINE AMINOTRANSFERASE 34 U/L (12-78); ALBUMIN 3.2 g/dL (3.4-5.0); ALKALINE PHOSPHATASE 54 U/L (46-116); ANION GAP 9 mmol/L (8-16); ASPARTATE AMINOTRANSFERASE 25 U/L (15-37); BILIRUBIN,TOTAL 0.4 mg/dL (0.1-1.0); CALCIUM, TOTAL 8.2 mg/dL (8.8-10.5); CARBAMAZEPINE (TEGRETOL) 8.3 mcg/mL (4.0-12.0); CARBON DIOXIDE 26 mmol/L (22-29); CHLORIDE 109 mmol/L (98-107); CHOL/HDL RATIO 4.8 (4.2-7.3); CHOLESTEROL 200 mg/dL (131-200); CREATININE 0.81 mg/dL (0.60-1.30); FREE T4 (FREE THYROXINE) 0.82 ng/dL (0.76-1.46); GLOMERULAR FILTR. RATE CALC > 60 mL/min (>60); GLUCOSE,RANDOM 81 mg/dL (70-110); HDL CHOLESTEROL 42 mg/dL (40-60); LDL CHOL (CALC.) 141 mg/dL (0-130); POTASSIUM 3.3 mmol/L (3.5-5.1); SODIUM SERUM 144 mmol/L (136-145); TOTAL PROTEIN, SERUM 6.4 g/dL (6.4-8.2); TRIGLYCERIDES 86 mg/dL (15-150); UREA NITROGEN, BLOOD 13 mg/dL (7-18)
[2018-08-12] MEDS: GABAPENTIN 100 MG CAPSULE PO SCH ×4 (08:54→20:21)
[2018-08-12] MEDS: THIAMINE HCL 100 MG TABLET PO SCH ×2 (08:54→16:45)
[2018-08-12] MEDS: FOLIC ACID 1 MG TABLET PO SCH (08:54)
[2018-08-12] MEDS: MULTIVITAMINS WITH MINERALS, THERAPEUTIC TABLET PO SCH (08:54)
[2018-08-12] MEDS: NALTREXONE HCL 50 MG TABLET PO SCH (08:54)
[2018-08-12] MEDS: CarBAMazepine 100 MG CHEWABLE TABLET PO SCH ×3 (08:55→16:43)
[2018-08-12 09:04] LABS: HEMOGLOBIN A1C 5.2 % (4.5-6.2)
[2018-08-12] MEDS ORDERED: POTASSIUM CHLORIDE 20 MEQ ER TABLET PO ONE (13:45)
[2018-08-12] MEDS ORDERED: PALIPERIDONE 1.5 MG ER TABLET PO PRN (14:15)
[2018-08-12] MEDS ORDERED: PALIPERIDONE PALMITATE 234 MG/1.5 ML SYRINGE IM ONE (16:00)
[2018-08-12 16:11] VITALS: BP 130/80
[2018-08-12] MEDS: LevETIRAcetam 500 MG TABLET PO SCH (16:44)
[2018-08-12] MEDS: PALIPERIDONE 3 MG ER TABLET PO SCH (20:21)
[2018-08-12] MEDS: PRAZOSIN HCL 1 MG CAPSULE PO SCH (20:21)
[2018-08-13 06:12] VITALS: BP 129/71
[2018-08-13 08:36] VITALS: BP 119/62
[2018-08-13] MEDS: MULTIVITAMINS WITH MINERALS, THERAPEUTIC TABLET PO SCH (09:23)
[2018-08-13] MEDS: NALTREXONE HCL 50 MG TABLET PO SCH (09:23)
[2018-08-13] MEDS: THIAMINE HCL 100 MG TABLET PO SCH ×2 (09:24→16:51)
[2018-08-13] MEDS: FOLIC ACID 1 MG TABLET PO SCH (09:24)
[2018-08-13] MEDS: LevETIRAcetam 500 MG TABLET PO SCH ×2 (09:24→16:51)
[2018-08-13] MEDS: CarBAMazepine 100 MG CHEWABLE TABLET PO SCH ×3 (09:24→16:51)
[2018-08-13] MEDS: GABAPENTIN 100 MG CAPSULE PO SCH ×4 (09:24→20:05)
[2018-08-13 16:12] VITALS: BP 100/60
[2018-08-13 20:05] VITALS: BP 112/79
[2018-08-13] MEDS: PRAZOSIN HCL 1 MG CAPSULE PO SCH (20:05)
[2018-08-13] MEDS: PALIPERIDONE 3 MG ER TABLET PO SCH (20:05)
[2018-08-14 03:04] VITALS: BP 110/68
[2018-08-14 08:09] VITALS: BP 107/70
[2018-08-14] MEDS: CarBAMazepine 100 MG CHEWABLE TABLET PO SCH ×3 (08:42→16:33)
[2018-08-14] MEDS: NALTREXONE HCL 50 MG TABLET PO SCH (08:42)
[2018-08-14] MEDS: LevETIRAcetam 500 MG TABLET PO SCH ×2 (08:42→16:33)
[2018-08-14] MEDS: FOLIC ACID 1 MG TABLET PO SCH (08:42)
[2018-08-14] MEDS: GABAPENTIN 100 MG CAPSULE PO SCH ×4 (08:43→20:11)
[2018-08-14] MEDS: MULTIVITAMINS WITH MINERALS, THERAPEUTIC TABLET PO SCH (08:43)
[2018-08-14] MEDS: THIAMINE HCL 100 MG TABLET PO SCH ×2 (08:43→16:33)
[2018-08-14 16:07] VITALS: BP 119/73
[2018-08-14 19:57] VITALS: BP 114/70
[2018-08-14] MEDS: PRAZOSIN HCL 1 MG CAPSULE PO SCH (20:11)
[2018-08-14] MEDS: PALIPERIDONE 3 MG ER TABLET PO SCH (20:11)
[2018-08-15 04:10] VITALS: BP 104/75
[2018-08-15] MEDS: LevETIRAcetam 500 MG TABLET PO SCH (08:22)
[2018-08-15] MEDS: CarBAMazepine 100 MG CHEWABLE TABLET PO SCH (08:22)
[2018-08-15] MEDS: THIAMINE HCL 100 MG TABLET PO SCH (08:22)
[2018-08-15] MEDS: FOLIC ACID 1 MG TABLET PO SCH (08:22)
[2018-08-15] MEDS: MULTIVITAMINS WITH MINERALS, THERAPEUTIC TABLET PO SCH (08:22)
[2018-08-15] MEDS: NALTREXONE HCL 50 MG TABLET PO SCH (08:22)
[2018-08-15] MEDS: GABAPENTIN 100 MG CAPSULE PO SCH (08:22)
[2018-08-15 08:51] VITALS: BP 108/67
[2018-08-16] MEDS ORDERED: PALIPERIDONE PALMITATE 156 MG/ML SYRINGE IM ONE (09:00)
== END 2018-08-15 10:30 | disposition left against medical advice (07) | DRG 885 ==
LOC: EMS 12:04 → B2X 16:24
PROVIDERS: ADMIT Psychiatry & Neurology Psychiatry; ATTEND Psychiatry & Neurology Psychiatry
DX: F25.1 Schizoaffective disorder, depressive type (principal); R45.851 Suicidal ideations; I10 Essential (primary) hypertension; F15.10 Other stimulant abuse, uncomplicated; E78.5 Hyperlipidemia, unspecified; F17.210 Nicotine dependence, cigarettes, uncomplicated; G89.29 Other chronic pain; Z91.14 Patient's other noncompliance with medication regimen; Z88.6 Allergy status to analgesic agent; Z88.8 Allergy status to other drugs, medicaments and biological substances; Z79.899 Other long term (current) drug therapy
CPT/HCPCS: 83036; 84132; 84439; 84443; 86592; 87081; G0480

== ENCOUNTER 2019-04-29 00:03 | Inpatient (IN) | payer MEDICARE, MEDICAID ==
[~2019-04-29] VITALS: Ht 170.2 cm; Wt 89.8 kg
[2019-04-29 01:15] VITALS: BP 109/63
[2019-04-29] MEDS ORDERED: ZOLPIDEM TARTRATE 10 MG TABLET PO PRN (02:00)
[2019-04-29] MEDS: LORazepam 2 MG TABLET PO PRN ×3 (05:41→16:53)
[2019-04-29] MEDS ORDERED: BUPR75 PO (05:44)
[2019-04-29] MEDS ORDERED: ARIP10TA8 PO (05:44)
[2019-04-29] MEDS ORDERED: CARB200T6 PO (05:44)
[2019-04-29] MEDS ORDERED: CARI350 PO (05:45)
[2019-04-29] MEDS ORDERED: FLUO20SO9 PO (05:46)
[2019-04-29] MEDS: OLANZapine 5 MG RAPDIS TABLET PO PRN ×3 (05:53→16:54)
[2019-04-29] MEDS ORDERED: GABA-531 PO (06:07)
[2019-04-29] MEDS ORDERED: LEVE250T55 PO (06:07)
[2019-04-29 08:21] VITALS: BP 117/78
[2019-04-29 16:20] VITALS: BP 116/82
[2019-04-29] MEDS: ARIPiprazole 10 MG TABLET PO SCH (20:10)
[2019-04-30 00:20] VITALS: BP 120/81
[2019-04-30] MEDS: LORazepam 2 MG TABLET PO PRN ×3 (06:05→19:03)
[2019-04-30] MEDS ORDERED: ACETAMINOPHEN 325 MG TABLET PO PRN (06:45)
[2019-04-30 06:48] VITALS: BP 126/78
[2019-04-30 06:52] LABS: BASOPHILS % (AUTO) 0.6 % (0.0-2.0); EOSINOPHILS % (AUTO) 2.6 % (1.0-6.0); HEMATOCRIT 54.3 % (41-53); HEMOGLOBIN 18.2 g/dL (13.5-17.5); LYMPHOCYTES # (AUTO) 1.5 K/uL (1.0-4.8); LYMPHOCYTES % (AUTO) 29.7 % (22.0-44.0); MEAN CORPUSCULAR HEMOGLOBIN 32.2 pg (26.0-34.0); MEAN CORPUSCULAR HGB CONC 33.4 G/dL (31.0-37.0); MEAN CORPUSCULAR VOLUME 96 fL (80-100); MONOCYTES # (AUTO) 0.4 K/uL (0.1-1.0); MONOCYTES % (AUTO) 7.4 % (2.0-9.0); NEUTROPHILS % (AUTO) 59.7 % (40.0-70.0); PLATELET COUNT (AUTO) 221 K/uL (150-450); RED BLOOD CELL COUNT(AUTO) 5.64 MIL/uL (4.50-5.90); RED CELL DISTRIBUTION WIDTH 13.1 % (11.5-14.5)
[2019-04-30] MEDS: OLANZapine 5 MG RAPDIS TABLET PO PRN ×2 (07:19→17:24)
[2019-04-30 07:58] LABS: ALANINE AMINOTRANSFERASE 31 U/L (12-78); ALBUMIN 3.8 g/dL (3.4-5.0); ALKALINE PHOSPHATASE 62 U/L (46-116); ANION GAP 6 mmol/L (8-16); ASPARTATE AMINOTRANSFERASE 18 U/L (15-37); BILIRUBIN,TOTAL 0.3 mg/dL (0.1-1.0); CALCIUM, TOTAL 9.3 mg/dL (8.8-10.5); CARBON DIOXIDE 29 mmol/L (22-29); CHLORIDE 107 mmol/L (98-107); CHOL/HDL RATIO 8.1 (4.2-7.3); CHOLESTEROL 268 mg/dL (131-200); CREATININE 0.94 mg/dL (0.60-1.30); FREE T4 (FREE THYROXINE) 0.88 ng/dL (0.76-1.46); GLOMERULAR FILTR. RATE CALC > 60 mL/min (>60); GLUCOSE,RANDOM 95 mg/dL (70-110); HDL CHOLESTEROL 33 mg/dL (40-60); POTASSIUM 4.5 mmol/L (3.5-5.1); SODIUM SERUM 142 mmol/L (136-145); THYROID STIMULATING HORMONE 0.37 uIU/mL (0.36-3.74); TOTAL PROTEIN, SERUM 7.2 g/dL (6.4-8.2); TRIGLYCERIDES 717 mg/dL (15-150); UREA NITROGEN, BLOOD 15 mg/dL (7-18)
[2019-04-30] MEDS: GABAPENTIN 300 MG CAPSULE PO SCH ×3 (08:09→16:37)
[2019-04-30] MEDS: BusPIRone HCL 10 MG TABLET PO SCH ×2 (08:09→16:37)
[2019-04-30 08:14] VITALS: BP 117/73
[2019-04-30 08:14] LABS: HEMOGLOBIN A1C 5.3 % (4.5-6.2)
[2019-04-30] MEDS: LevETIRAcetam 500 MG TABLET PO SCH ×2 (10:12→16:37)
[2019-04-30 16:03] VITALS: BP 108/60
[2019-04-30] MEDS: ARIPiprazole 10 MG TABLET PO SCH (20:12)
[2019-04-30] MEDS ORDERED: MAG HYDROX/AL HYDROX/SIMETH 30 ML SUSP UDCUP PO PRN (21:00)
[2019-05-01 00:20] VITALS: BP 108/62
[2019-05-01 07:52] LABS: CHOL/HDL RATIO 6.9 (4.2-7.3); CHOLESTEROL 240 mg/dL (131-200); HDL CHOLESTEROL 35 mg/dL (40-60); TRIGLYCERIDES 478 mg/dL (15-150)
[2019-05-01] MEDS: LORazepam 2 MG TABLET PO PRN ×2 (08:02→13:33)
[2019-05-01] MEDS: LevETIRAcetam 500 MG TABLET PO SCH ×2 (08:03→16:18)
[2019-05-01] MEDS: GABAPENTIN 300 MG CAPSULE PO SCH ×3 (08:03→16:18)
[2019-05-01] MEDS: BusPIRone HCL 10 MG TABLET PO SCH ×2 (08:03→16:18)
[2019-05-01 08:49] VITALS: BP 112/76
[2019-05-01] MEDS: OLANZapine 5 MG RAPDIS TABLET PO PRN (09:12)
[2019-05-01] MEDS ORDERED: FLUO-191 PO (12:34)
[2019-05-01] MEDS: ATORVASTATIN CALCIUM 40 MG TABLET PO SCH (13:33)
[2019-05-01 16:28] VITALS: BP 115/71
[2019-05-01] MEDS ORDERED: PROMETHAZINE HCL 25 MG TABLET PO PRN (17:00)
[2019-05-01] MEDS ORDERED: GuaiFENesin/D-METHORPHAN [SUGAR-FREE] 200-20MG/10 ML SYRUP UDCUP PO PRN (17:00)
[2019-05-01] MEDS ORDERED: MAGNESIUM HYDROXIDE SUSPENSION 30 ML UDCUP PO PRN (17:00)
[2019-05-01] MEDS ORDERED: LOPERAMIDE HCL 2 MG CAPSULE PO PRN (17:00)
[2019-05-01] MEDS ORDERED: HydrOXYzine PAMOATE 50 MG CAPSULE PO PRN (17:00)
[2019-05-01] MEDS ORDERED: TUBERCULIN, PURIFIED PROTEIN DERIVATIVE 5 TU/0.1 ML SYRINGE ID ONE (17:00)
[2019-05-01] MEDS: CarBAMazepine 200 MG TABLET PO SCH (21:28)
[2019-05-01] MEDS: ARIPiprazole 10 MG TABLET PO SCH (21:28)
[2019-05-01] MEDS: THIAMINE HCL 100 MG TABLET PO SCH (21:28)
[2019-05-02] VITALS (9 sets, daily range): BP systolic 110–130; BP diastolic 71–94
[2019-05-02] MEDS: ACETAMINOPHEN 325 MG TABLET PO PRN ×2 (06:19→17:11)
[2019-05-02] MEDS: LORazepam 2 MG TABLET PO PRN (06:28)
[2019-05-02] MEDS: CarBAMazepine 200 MG TABLET PO SCH ×4 (09:00→21:00)
[2019-05-02] MEDS: MULTIVITAMINS WITH MINERALS, THERAPEUTIC TABLET PO SCH (09:00)
[2019-05-02] MEDS: LevETIRAcetam 500 MG TABLET PO SCH ×2 (09:00→16:25)
[2019-05-02] MEDS: FLUoxetine HCL 20 MG CAPSULE PO SCH (09:00)
[2019-05-02] MEDS: ATORVASTATIN CALCIUM 40 MG TABLET PO SCH (09:00)
[2019-05-02] MEDS: FOLIC ACID 1 MG TABLET PO SCH (09:00)
[2019-05-02] MEDS: GABAPENTIN 300 MG CAPSULE PO SCH ×2 (09:00→13:41)
[2019-05-02] MEDS: BusPIRone HCL 10 MG TABLET PO SCH ×2 (09:00→16:25)
[2019-05-02] MEDS: THIAMINE HCL 100 MG TABLET PO SCH ×2 (09:00→16:24)
[2019-05-02] MEDS: GABAPENTIN 400 MG CAPSULE PO SCH (16:24)
[2019-05-02] MEDS: LORazepam 1 MG TABLET PO PRN (16:25)
[2019-05-02] MEDS: ARIPiprazole 10 MG TABLET PO SCH (21:09)
[2019-05-03 06:20] VITALS: BP 120/60
[2019-05-03] MEDS: ACETAMINOPHEN 325 MG TABLET PO PRN (07:00)
[2019-05-03] MEDS: LORazepam 1 MG TABLET PO PRN ×2 (08:02→16:20)
[2019-05-03 08:11] VITALS: BP 122/74
[2019-05-03] MEDS: MULTIVITAMINS WITH MINERALS, THERAPEUTIC TABLET PO SCH (08:18)
[2019-05-03] MEDS: FOLIC ACID 1 MG TABLET PO SCH (08:18)
[2019-05-03] MEDS: GABAPENTIN 400 MG CAPSULE PO SCH ×3 (08:18→16:20)
[2019-05-03] MEDS: THIAMINE HCL 100 MG TABLET PO SCH ×2 (08:18→16:20)
[2019-05-03] MEDS: BusPIRone HCL 10 MG TABLET PO SCH ×2 (08:19→16:20)
[2019-05-03] MEDS: FLUoxetine HCL 20 MG CAPSULE PO SCH (08:19)
[2019-05-03] MEDS: ATORVASTATIN CALCIUM 40 MG TABLET PO SCH (08:20)
[2019-05-03] MEDS: LevETIRAcetam 500 MG TABLET PO SCH ×2 (08:20→16:20)
[2019-05-03] MEDS: CarBAMazepine 200 MG TABLET PO SCH ×4 (09:32→20:30)
[2019-05-03] MEDS ORDERED: BUSP10TA23 PO (12:10)
[2019-05-03] MEDS ORDERED: CARB200T6 PO (12:10)
[2019-05-03] MEDS ORDERED: ARIP10TA8 PO (12:10)
[2019-05-03] MEDS ORDERED: LEVE500T53 PO (12:10)
[2019-05-03] MEDS ORDERED: FLUO-191 PO (12:10)
[2019-05-03] MEDS ORDERED: GABA-533 PO (12:10)
[2019-05-03 16:09] VITALS: BP 121/83
[2019-05-03] MEDS: ARIPiprazole 10 MG TABLET PO SCH (20:15)
[2019-05-04 02:39] VITALS: BP 114/65
[2019-05-04 02:44] VITALS: BP 114/65
[2019-05-04] MEDS ORDERED: ATOR40TA28 PO (07:51)
[2019-05-04] MEDS ORDERED: ARIP10TA8 PO (07:51)
[2019-05-04] MEDS ORDERED: BUSP10TA23 PO (07:53)
[2019-05-04] MEDS ORDERED: LEVE500T53 PO (07:53)
[2019-05-04] MEDS ORDERED: CARB200T6 PO (07:53)
[2019-05-04] MEDS ORDERED: FLUO-191 PO (07:53)
[2019-05-04] MEDS ORDERED: GABA-533 PO (07:53)
[2019-05-04 08:21] VITALS: BP 142/80
[2019-05-04] MEDS: BusPIRone HCL 10 MG TABLET PO SCH (08:47)
[2019-05-04] MEDS: CarBAMazepine 200 MG TABLET PO SCH (08:47)
[2019-05-04] MEDS: MULTIVITAMINS WITH MINERALS, THERAPEUTIC TABLET PO SCH (08:47)
[2019-05-04] MEDS: GABAPENTIN 400 MG CAPSULE PO SCH (08:47)
[2019-05-04] MEDS: ATORVASTATIN CALCIUM 40 MG TABLET PO SCH (08:47)
[2019-05-04] MEDS: LevETIRAcetam 500 MG TABLET PO SCH (08:47)
[2019-05-04] MEDS: THIAMINE HCL 100 MG TABLET PO SCH (08:48)
[2019-05-04] MEDS: FLUoxetine HCL 20 MG CAPSULE PO SCH (08:48)
[2019-05-04] MEDS: FOLIC ACID 1 MG TABLET PO SCH (08:48)
== END 2019-05-04 10:35 | DRG 885 ==
LOC: B2X 00:03
PROVIDERS: ADMIT Psychiatry & Neurology Psychiatry; ATTEND Psychiatry & Neurology Psychiatry
DX: F25.0 Schizoaffective disorder, bipolar type (principal); R45.851 Suicidal ideations; E78.5 Hyperlipidemia, unspecified; Z79.899 Other long term (current) drug therapy; Z91.19 Patient's noncompliance with other medical treatment and regimen; Z81.8 Family history of other mental and behavioral disorders
CPT/HCPCS: 70450; 72125; 83036; 84439; 84443; 93005; G0482

== ENCOUNTER 2019-05-02 08:27 | Emergency (ER) | payer MEDICARE, MEDICAID ==
[~2019-05-02] VITALS: Ht 177.8 cm; Wt 90.0 kg
[~2019-05-02 08:27] MED LIST changes: +ARIP10TA8 PO; +BUPR75 PO; +LEVE250T55 PO; -PRAZ1 PO; -QUET200T PO
[2019-05-02 09:39] LABS: BASOPHILS % (AUTO) 0.9 % (0.0-2.0); EOSINOPHILS % (AUTO) 1.9 % (1.0-6.0); HEMATOCRIT 52.9 % (41-53); HEMOGLOBIN 17.9 g/dL (13.5-17.5); LYMPHOCYTES # (AUTO) 1.5 K/uL (1.0-4.8); LYMPHOCYTES % (AUTO) 28.1 % (22.0-44.0); MEAN CORPUSCULAR HGB CONC 33.8 G/dL (31.0-37.0); MEAN CORPUSCULAR VOLUME 95 fL (80-100); MONOCYTES # (AUTO) 0.4 K/uL (0.1-1.0); MONOCYTES % (AUTO) 8.4 % (2.0-9.0); NEUTROPHILS # (AUTO) 3.2 K/uL (1.8-7.7); NEUTROPHILS % (AUTO) 60.7 % (40.0-70.0); PLATELET COUNT (AUTO) 205 K/uL (150-450); RED BLOOD CELL COUNT(AUTO) 5.59 MIL/uL (4.50-5.90); RED CELL DISTRIBUTION WIDTH 12.8 % (11.5-14.5)
[2019-05-02 09:49] LABS: ANION GAP 7 mmol/L (8-16); CALCIUM, TOTAL 9.3 mg/dL (8.8-10.5); CARBON DIOXIDE 28 mmol/L (22-29); CHLORIDE 106 mmol/L (98-107); GLOMERULAR FILTR. RATE CALC > 60 mL/min (>60); GLUCOSE,RANDOM 91 mg/dL (70-110); POTASSIUM 4.1 mmol/L (3.5-5.1); SODIUM SERUM 141 mmol/L (136-145); UREA NITROGEN, BLOOD 12 mg/dL (7-18)
[2019-05-02 09:54] LABS: ALANINE AMINOTRANSFERASE 46 U/L (12-78); ALBUMIN 3.8 g/dL (3.4-5.0); ALKALINE PHOSPHATASE 64 U/L (46-116); ASPARTATE AMINOTRANSFERASE 18 U/L (15-37); BILIRUBIN,TOTAL 0.4 mg/dL (0.1-1.0); TOTAL PROTEIN, SERUM 7.2 g/dL (6.4-8.2)
[2019-05-02 11:22] VITALS: BP 126/85
[2019-05-03] MEDS ORDERED: FLUO-191 PO (12:10)
[2019-05-03] MEDS ORDERED: GABA-533 PO (12:10)
[2019-05-03] MEDS ORDERED: ARIP10TA8 PO (12:10)
[2019-05-03] MEDS ORDERED: LEVE500T53 PO (12:10)
[2019-05-03] MEDS ORDERED: CARB200T6 PO (12:10)
[2019-05-03] MEDS ORDERED: BUSP10TA23 PO (12:10)
== END 2019-05-02 12:58 | disposition home or self-care (01) ==
LOC: EMS 08:29
DX: R42 Dizziness and giddiness (principal); M54.2 Cervicalgia; R51 Headache; F32.9 Major depressive disorder, single episode, unspecified; F20.9 Schizophrenia, unspecified; G89.29 Other chronic pain; F19.90 Other psychoactive substance use, unspecified, uncomplicated; Z88.6 Allergy status to analgesic agent; Z88.5 Allergy status to narcotic agent; W18.09XA Striking against other object with subsequent fall, initial encounter; Y93.89 Activity, other specified; Y92.89 Other specified places as the place of occurrence of the external cause; Y99.8 Other external cause status
CPT/HCPCS: 70450; 72125; 93005

== ENCOUNTER 2025-07-14 10:28 | Inpatient (IN) | payer MEDICARE, MEDICAID ==
[~2025-07-14] VITALS: Ht 170.2 cm; Wt 220.8 kg
[~2025-07-14 10:28] MED LIST changes: +ARIP10TA38 PO; -ARIP10TA8 PO; +ATOR40TA28 PO; -BUPR75 PO; +BUSP10TA23 PO; +CARB-226 PO; -CARB200T6 PO; -CARI350 PO; +FLUO-177 PO; -FLUO-191 PO; -GABA-531 PO; +GABA-534 PO; +LEVE-71 PO; -LEVE250T55 PO
[2025-07-14 10:43] VITALS: O2SAT 97
[2025-07-14 10:53] LABS: PLATELET COUNT (AUTO) 246 K/uL (150-450); RED BLOOD CELL COUNT(AUTO) 4.80 MIL/uL (4.00-5.20); RED CELL DISTRIBUTION WIDTH 13.5 % (11.5-14.5); WHITE BLOOD COUNT (AUTO) 5.8 K/uL (4.5-11.0)
[2025-07-14 11:07] LABS: CALCIUM, TOTAL 8.6 mg/dL (8.8-10.5); CREATININE 0.90 mg/dL (0.60-1.30); GLOMERULAR FILTR. RATE CALC > 60 mL/min (>60); GLUCOSE,RANDOM 97 mg/dL (70-110); SODIUM SERUM 139 mmol/L (136-145); UREA NITROGEN, BLOOD 12 mg/dL (7-18)
[2025-07-14 11:25] LABS: COVID AG,FIA SOURCE NASAL SWAB
[2025-07-14] MEDS ORDERED: ZOLPIDEM TARTRATE 10 MG TABLET PO PRN (11:30)
[2025-07-14 11:52] LABS: SARS-COV2 (COVID) ANTIGEN,FIA Negative (Negative)
[2025-07-14 16:10] VITALS: BP 112/76; PULSE 97; RESP 18; TEMP 97.3; O2SAT 97
[2025-07-14] MEDS ORDERED: DOCUSATE SODIUM 100 MG CAPSULE PO PRN (18:30)
[2025-07-14] MEDS ORDERED: NICOTINE 14 MG/24 HOUR PATCH TD PRN (18:30)
[2025-07-14] MEDS ORDERED: LOPERAMIDE HCL 2 MG CAPSULE PO PRN (18:30)
[2025-07-14] MEDS ORDERED: ALBUTEROL SULFATE HFA 90 MCG/PUFF 8 GM INHALER IH PRN (18:30)
[2025-07-14] MEDS ORDERED: GuaiFENesin/D-METHORPHAN [SUGAR-FREE] 200-20MG/10 ML SYRUP UDCUP PO PRN (18:30)
[2025-07-14] MEDS ORDERED: MAGNESIUM HYDROXIDE SUSPENSION 30 ML UDCUP PO PRN (18:30)
[2025-07-14] MEDS ORDERED: MAG HYDROX/ALUMINUM HYD/SIMETH ES 30 ML SUSPENSION UDCUP PO PRN (18:30)
[2025-07-14] MEDS ORDERED: PETROLATUM,WHITE 28 GM JELLY TP PRN (18:30)
[2025-07-14] MEDS ORDERED: ONDANSETRON 4 MG TABLET PO PRN (18:30)
[2025-07-14 23:32] VITALS: RESP 18
[2025-07-15 09:17] VITALS: BP 102/71; PULSE 89; RESP 18; TEMP 98.1; O2SAT 99
[2025-07-15] MEDS: ETHYL ALCOHOL 62% ANTISEPTIC NASAL SANITIZER 0.6 ML AMPUL NASAL SCH (10:22)
[2025-07-15 11:13] LABS: CHOL/HDL RATIO 5.4 (3.9-5.7); LDL CHOL (CALC.) 140.0 mg/dL (0-130)
[2025-07-15 11:35] VITALS: BP 102/71; PULSE 89; RESP 18; TEMP 98; O2SAT 99
[2025-07-15] MEDS: ACETAMINOPHEN 325 MG TABLET PO PRN (11:40)
[2025-07-15] MEDS: MIRTAZAPINE 15 MG TABLET PO SCH (20:24)
[2025-07-15 21:10] VITALS: BP 121/83; PULSE 82; RESP 18; TEMP 97.3; O2SAT 95
[2025-07-16 08:42] VITALS: BP 130/89; PULSE 93; RESP 18; TEMP 97.6; O2SAT 98
[2025-07-16] MEDS ORDERED: LORazepam 2 MG/ML VIAL IM PRN (09:00)
[2025-07-16 09:06] LABS: GLUCOMETER DEV NAME(LOC) 3EX.2; GLUCOSE,POINT OF CARE 135 MG/DL (70-110)
[2025-07-16 09:54] LABS: CALCIUM, TOTAL 8.7 mg/dL (8.8-10.5); CREATININE 0.69 mg/dL (0.60-1.30); GLOMERULAR FILTR. RATE CALC > 60 mL/min (>60); GLUCOSE,RANDOM 95 mg/dL (70-110); SODIUM SERUM 139 mmol/L (136-145); UREA NITROGEN, BLOOD 14 mg/dL (7-18)
[2025-07-16] MEDS ORDERED: MIRT-89 PO (14:34)
[2025-07-16] MEDS ORDERED: QUET300T2 PO (14:34)
[2025-07-16] MEDS ORDERED: LEVE-71 PO (14:34)
[2025-07-16] MEDS ORDERED: FLUO-418 PO (14:34)
== END 2025-07-16 15:45 | disposition home or self-care (01) | DRG 885 ==
LOC: EMS 10:28 → 3EI 14:35
PROVIDERS: ADMIT Psychiatry & Neurology Child & Adolescent Psychiatry; ATTEND Psychiatry & Neurology Child & Adolescent Psychiatry
PROC: GZ58ZZZ Individual Psychotherapy, Cognitive-Behavioral (ICD-10-PCS; principal; 2025-07-15)
PROC: GZ56ZZZ Individual Psychotherapy, Supportive (ICD-10-PCS; 2025-07-15)
DX: F25.1 Schizoaffective disorder, depressive type (principal); R45.851 Suicidal ideations; F15.10 Other stimulant abuse, uncomplicated; Z20.822 Contact with and (suspected) exposure to COVID-19; Z88.6 Allergy status to analgesic agent; E78.5 Hyperlipidemia, unspecified; F17.200 Nicotine dependence, unspecified, uncomplicated; F64.0 Transsexualism; G40.909 Epilepsy, unspecified, not intractable, without status epilepticus; G89.29 Other chronic pain; I10 Essential (primary) hypertension; F32.A Depression, unspecified; J44.9 Chronic obstructive pulmonary disease, unspecified; Z79.899 Other long term (current) drug therapy; Z91.148 Patient's other noncompliance with medication regimen for other reason; Z91.048 Other nonmedicinal substance allergy status
CPT/HCPCS: 80048; 80061; 82962; 83036; 83735; 84443; 85025; 87081; 99285; G0480; G0482